=== PATIENT | male | born 1965 | race Caucasian/White ===

== ENCOUNTER 2019-02-11 17:09 | Inpatient (IN) ==
[2019-02-11] MEDS ORDERED: methylPREDNISolone 125 MG/2 ML VIAL IVP ONE (17:12)
[2019-02-11] MEDS ORDERED: 0.9 % Sodium Chloride 1,000 ML IVC ONE ×2 (17:12→17:18)
[2019-02-11] MEDS ORDERED: Ipratropium/Albuterol Neb 3 ML IH ONE (17:12)
[2019-02-11] MEDS ORDERED: cefTRIAXone 2,000 MG in Water for inj. (sterile) 10 ML IVP ONE (17:12)
[2019-02-11] MEDS ORDERED: Azithromycin 500 MG in 0.9 % Sodium Chloride 250 ML IVPB ONE (17:12)
[2019-02-11 17:35] LABS: ABG Base Excess 2 mEq/L (-2 to 3); ABG HCO3 31 mEq/L (21-27); ABG Oxygen Saturation 86 % (95-98); ABG PCO2 61 mmHg (35-45); ABG PH 7.32 pH Units (7.32-7.45); ABG PO2 57 mmHg (85-104); ABG TCO2 33 mEq/L (20-26)
[2019-02-11 17:41] LABS: Basophils # 0.1 K/mcL (0.0-0.2); Basophils % 0.6 %; Eosinophils % 0.1 %; Hemoglobin 18.6 g/dL (12.9-16.9); Immature Granulocytes % 0.3 % (0-4); Lymphocytes # 0.4 K/mcL (0.6-4.6); Lymphocytes % 3.3 %; Mean Corpuscular HGB Conc 33.2 g/dL (31.6-35.5); Mean Corpuscular Hemoglobin 31.7 pg (28.0-33.3); Mean Corpuscular Volume 95.4 fL (83.0-100.0); Mean Platelet Volume 9.7 fL (9.4-12.4); Monocytes # 0.5 K/mcL (0.0-1.3); Monocytes % 4.3 %; Neutrophils # 9.7 K/mcL (1.6-8.9); Platelet Count 142 K/mcL (140-400); Red Blood Count 5.87 M/mcL (4.19-5.50); Segmented Neutrophils % 91.4 %; White Blood Count 10.6 K/mcL (4.3-11.1)
[2019-02-11 17:50] LABS: INR 1.2; Prothrombin Time 13.5 Seconds (9.4-12.1)
[2019-02-11 17:52] LABS: Activated Partial Thrombo Time 37.2 Seconds (26.0-36.0)
[2019-02-11] MEDS ORDERED: Ondansetron 4 MG/2 ML VIAL IVP ONE (17:54)
[2019-02-11 17:58] LABS: Alanine Aminotransferase 14 Units/L (7-52); Albumin 4.3 g/dL (3.5-5.7); Albumin/Globulin Ratio 1.3 (1.1-2.2); Alkaline Phosphatase 75 Units/L (34-104); Aspartate Amino Transferase 20 Units/L (13-39); BUN/Creatinine Ratio 15 (6-26); Bilirubin,Direct 0.2 mg/dL (0.0-0.2); Bilirubin,Indirect 0.6 mg/dL (0.0-1.0); Bilirubin,Total 0.8 mg/dL (0.3-1.0); Blood Urea Nitrogen 15 mg/dL (6-20); Calcium 9.2 mg/dL (8.6-10.3); Carbon Dioxide 30 mEq/L (23-29); Chloride 100 mEq/L (98-107); Globulin 3.4 g/dL (2.4-3.5); Glucose 142 mg/dL (70-105); Osmolality,Calculated 289 (280-300); Potassium 4.1 mEq/L (3.5-5.1); Sodium 138 mEq/L (136-145); Total Protein 7.7 g/dL (6.4-8.9); eGFR For African Americans > 60 (> 60); eGFR For Non-African Americans > 60 (> 60)
[2019-02-11 18:01] LABS: Troponin I 0.03 ng/mL (< 0.04)
[2019-02-11] MEDS ORDERED: GuaiFENesin Liq 200 MG/10 ML UDC PO ONE (18:18)
[2019-02-11] MEDS ORDERED: Albuterol 2.5 MG/3 ML NEBULIZER IH ONE (18:18)
[2019-02-11] MEDS ORDERED: Albuterol 2.5 MG/3 ML NEBULIZER ONE (18:27)
[2019-02-11] MEDS ORDERED: Naloxone 0.4 MG/ML INJ IVP PRN (18:52)
[2019-02-11] MEDS ORDERED: Ibuprofen 400 MG TABLET PO PRN (18:52)
[2019-02-11] MEDS ORDERED: MOM Conc 10 ML UD.LIQ PO PRN (18:52)
[2019-02-11] MEDS ORDERED: Ondansetron 4 MG/2 ML VIAL IVP PRN (18:52)
[2019-02-11] MEDS ORDERED: 0.9 % Sodium Chloride 1,000 ML IVC SCH (19:00)
[2019-02-11] MEDS: Ipratropium/Albuterol Neb 3 ML IH SCH (20:22)
[2019-02-11] MEDS: 0.9 % Sodium Chloride 1,000 ML IVC SCH (21:00)
[2019-02-11] MEDS ORDERED: Ibuprofen 800 MG TABLET PO PRN (23:13)
[2019-02-12] MEDS: Ipratropium/Albuterol Neb 3 ML IH SCH ×6 (00:14→21:06)
[2019-02-12] MEDS: MethylPREDNISolone 40 MG/ML VIAL IVP SCH ×4 (00:24→18:02)
[2019-02-12] MEDS ORDERED: Albuterol 2.5 MG/3 ML NEBULIZER IH SCH (04:00)
[2019-02-12] MEDS: 0.9 % Sodium Chloride 1,000 ML IVC SCH ×2 (04:42→21:51)
[2019-02-12 06:57] LABS: Hematocrit 54.3 % (37.5-50.1); Mean Corpuscular HGB Conc 31.3 g/dL (31.6-35.5); Mean Corpuscular Hemoglobin 31.2 pg (28.0-33.3); Mean Corpuscular Volume 99.6 fL (83.0-100.0); Mean Platelet Volume 9.5 fL (9.4-12.4); Platelet Count 120 K/mcL (140-400); Red Blood Count 5.45 M/mcL (4.19-5.50); Red Cell Distribution Width 13.8 % (11.5-14.5); White Blood Count 8.1 K/mcL (4.3-11.1)
[2019-02-12 07:18] LABS: BUN/Creatinine Ratio 19 (6-26); Blood Urea Nitrogen 17 mg/dL (6-20); Calcium 8.5 mg/dL (8.6-10.3); Carbon Dioxide 32 mEq/L (23-29); Chloride 105 mEq/L (98-107); Glucose 195 mg/dL (70-105); Osmolality,Calculated 299 (280-300); Potassium 4.4 mEq/L (3.5-5.1); Sodium 141 mEq/L (136-145); eGFR For African Americans > 60 (> 60); eGFR For Non-African Americans > 60 (> 60)
[2019-02-12] MEDS ORDERED: ARIPiprazole 5 MG TABLET PO SCH (09:00)
[2019-02-12] MEDS ORDERED: Sucralfate 1 GM TABLET PO SCH (09:00)
[2019-02-12] MEDS ORDERED: amLODIPine 5 MG TABLET PO SCH (09:00)
[2019-02-12] MEDS ORDERED: RisperiDAL 3 MG TABLET PO SCH (09:00)
[2019-02-12] MEDS: risperiDONE 1 MG TABLET PO SCH ×2 (09:10→21:49)
[2019-02-12] MEDS: ALPRAZolam 1 MG TABLET PO SCH ×3 (09:10→21:50)
[2019-02-12] MEDS ORDERED: Piperacillin/Tazobactam 3.375 GM in 0.9 % Sodium Chloride Mini Bag 100 ML IVPB SCH (10:31)
[2019-02-12] MEDS ORDERED: levoFLOXacin 750 MG/150 ML 750 MG/150 ML BAG IVPB SCH (10:32)
[2019-02-12] MEDS ORDERED: *HR* Enoxaparin 40 MG/0.4 ML SYRINGE SQ SCH (12:01)
[2019-02-12 13:03] LABS: Acinetobacter baumannii by PCR Not Detected (Not Detect); Candida albicans by PCR Not Detected (Not Detect); Enterobacter cloacae Cmplx PCR Not Detected (Not Detect); Enterobacteriaceae by PCR Not Detected (Not Detect); Enterococcus by PCR Not Detected (Not Detect); Escherichia coli by PCR Not Detected (Not Detect); Klebsiella oxytoca by PCR Not Detected (Not Detect); Klebsiella pneumoniae by PCR Not Detected (Not Detect); Proteus by PCR Not Detected (Not Detect); Pseudomonas aeruginosa by PCR Not Detected (Not Detect); Serratia marcescens by PCR Not Detected (Not Detect); Staphylococcus aureus by PCR Not Detected (Not Detect); Staphylococcus by PCR DETECTED (Not Detect); Streptococcus agalactiae(B)PCR Not Detected (Not Detect); Streptococcus by PCR Not Detected (Not Detect); Streptococcus pneumoniae PCR Not Detected (Not Detect); Streptococcus pyogenes (A) PCR Not Detected (Not Detect); blaKPC Carbapenem-Resist Gene Not Detected (Not Detect); mecA Methicillin-Resist Gene DETECTED (Not Detect); vanA/B Vancomycin-Resist Genes Not Detected (Not Detect)
[2019-02-12 13:04] LABS: Candida glabrata by PCR Not Detected (Not Detect); Candida krusei by PCR Not Detected (Not Detect); Candida parapsilosis by PCR Not Detected (Not Detect); Candida tropicalis by PCR Not Detected (Not Detect)
[2019-02-12] MEDS ORDERED: cefTRIAXone 2,000 MG in Water for inj. (sterile) 20 ML IVPB SCH (16:00)
[2019-02-12] MEDS ORDERED: Azithromycin 500 MG in 0.9 % Sodium Chloride 250 ML IVPB SCH (17:00)
[2019-02-12 17:15] LABS: Adenovirus Not Detected (Not Detect); Bordetella Pertussis Not Detected (Not Detect); Chlamydophila pneumoniae Not Detected (Not Detect); Coronavirus 229E Not Detected (Not Detect); Coronavirus HKU1 Not Detected (Not Detect); Coronavirus NL63 Not Detected (Not Detect); Coronavirus OC43 Not Detected (Not Detect); Human Metapneumovirus Not Detected (Not Detect); Human Rhinovirus/Enterovirus Not Detected (Not Detect); Influenza A Subtype 2009 H1 Not Detected (Not Detect); Influenza A Untypeable Not Detected (Not Detect); Influenza B Not Detected (Not Detect); Mycoplasma pneumoniae Not Detected (Not Detect); Parainfluenza Virus 1 Not Detected (Not Detect); Parainfluenza Virus 2 Not Detected (Not Detect); Parainfluenza Virus 3 Not Detected (Not Detect); Parainfluenza Virus 4 Not Detected (Not Detect); Respiratory Syncytial Virus DETECTED (Not Detect)
[2019-02-12] MEDS ORDERED: Furosemide 40 MG/4 ML VIAL IVP ONE (17:37)
[2019-02-12 18:19] LABS: ABG Base Excess -3 mEq/L (-2 to 3); ABG HCO3 34 mEq/L (21-27); ABG Oxygen Saturation 89 % (95-98); ABG PCO2 119 mmHg (35-45); ABG PH 7.06 pH Units (7.32-7.45); ABG PO2 86 mmHg (85-104); ABG TCO2 37 mEq/L (20-26)
[2019-02-12 19:29] VITALS: BP 109/59
[2019-02-12] MEDS: Piperacillin/Tazobactam 3.375 GM in 0.9 % Sodium Chloride Mini Bag 100 ML IVPB SCH ×2 (21:51→21:52)
[2019-02-13] MEDS ORDERED: Piperacillin/Tazobactam 3.375 GM in 0.9 % Sodium Chloride Mini Bag 100 ML IVPB SCH
== END 2019-02-12 23:10 | disposition short-term general hospital (02) | DRG 720 ==
LOC: EMEROOPIK 17:09 → INPPIK 17:09
PROVIDERS: ADMIT Nurse Practitioner Primary Care; ATTEND Nurse Practitioner Primary Care

== ENCOUNTER 2019-03-18 17:49 | Observation (INO) ==
[2019-03-18 19:24] LABS: Bilirubin,Urine Negative (Negative); Blood,Urine Negative (Negative); Clarity,Urine Clear (Clear); Color,Urine Yellow (Yellow); Glucose,Urine (UA) Normal (Normal); Ketones,Urine Negative (Negative); Leukocyte Esterase,Urine Negative (Negative); Nitrite,Urine Negative (Negative); Protein,Urine Negative (Neg-Trace); Specific Gravity,Urine 1.025 (1.010-1.025); Urobilinogen,Urine >=8.0 mg/dL (Normal)
[2019-03-18 19:49] LABS: Basophils # 0.1 K/mcL (0.0-0.2); Basophils % 0.4 %; Eosinophils % 0.1 %; Hematocrit 50.2 % (37.5-50.1); Immature Granulocytes % 0.4 % (0-4); Lymphocytes # 1.7 K/mcL (0.6-4.6); Lymphocytes % 10.4 %; Mean Corpuscular HGB Conc 33.9 g/dL (31.6-35.5); Mean Corpuscular Hemoglobin 30.9 pg (28.0-33.3); Mean Corpuscular Volume 91.3 fL (83.0-100.0); Mean Platelet Volume 9.2 fL (9.4-12.4); Monocytes # 1.5 K/mcL (0.0-1.3); Platelet Count 162 K/mcL (140-400); Red Cell Distribution Width 13.6 % (11.5-14.5); Segmented Neutrophils % 79.7 %; White Blood Count 16.5 K/mcL (4.3-11.1)
[2019-03-18 19:53] LABS: Neutrophils # 13.2 K/mcL (1.6-8.9)
[2019-03-18 19:59] LABS: Prothrombin Time 11.6 Seconds (9.4-12.1)
[2019-03-18 20:10] LABS: Alanine Aminotransferase 19 Units/L (7-52); Albumin 4.2 g/dL (3.5-5.7); Albumin/Globulin Ratio 1.4 (1.1-2.2); Alkaline Phosphatase 73 Units/L (34-104); Aspartate Amino Transferase 19 Units/L (13-39); BUN/Creatinine Ratio 13 (6-26); Bilirubin,Total 0.6 mg/dL (0.3-1.0); Blood Urea Nitrogen 13 mg/dL (6-20); Calcium 9.1 mg/dL (8.6-10.3); Carbon Dioxide 28 mEq/L (23-29); Chloride 102 mEq/L (98-107); Globulin 3.1 g/dL (2.4-3.5); Glucose 104 mg/dL (70-105); Magnesium 1.8 mg/dL (1.6-2.6); Osmolality,Calculated 286 (280-300); Potassium 4.1 mEq/L (3.5-5.1); Sodium 138 mEq/L (136-145); Total Protein 7.3 g/dL (6.4-8.9); eGFR For African Americans > 60 (> 60); eGFR For Non-African Americans > 60 (> 60)
[2019-03-18 20:11] LABS: Troponin I < 0.03 ng/mL (< 0.04)
[2019-03-18] MEDS ORDERED: Isovue-370 500 ML BOTTLE IVP ONE (20:30)
[2019-03-18] MEDS ORDERED: 0.9 % Sodium Chloride 1,000 ML IV ONE (22:18)
[2019-03-18] MEDS ORDERED: Piperacillin/Tazobactam 3.375 GM in 0.9 % Sodium Chloride Mini Bag 100 ML IVPB SCH (22:30)
[2019-03-18] MEDS ORDERED: Ipratropium/Albuterol Neb 3 ML IH PRN ×2 (22:47→23:21)
[2019-03-18] MEDS ORDERED: Ondansetron 4 MG/2 ML VIAL IVP PRN (23:21)
[2019-03-18] MEDS ORDERED: Naloxone 0.4 MG/ML INJ IVP PRN (23:21)
[2019-03-18] MEDS: 0.9 % Sodium Chloride 1,000 ML IVC SCH (23:41)
[2019-03-19] MEDS: risperiDONE 1 MG TABLET PO SCH ×2 (00:14→20:20)
[2019-03-19] MEDS: ALPRAZolam 1 MG TABLET PO SCH ×4 (00:14→20:21)
[2019-03-19] MEDS: Ipratropium/Albuterol Neb 3 ML IH SCH ×4 (03:40→22:19)
[2019-03-19 06:30] LABS: BUN/Creatinine Ratio 14 (6-26); Blood Urea Nitrogen 13 mg/dL (6-20); Calcium 8.1 mg/dL (8.6-10.3); Carbon Dioxide 23 mEq/L (23-29); Chloride 105 mEq/L (98-107); Glucose 114 mg/dL (70-105); Osmolality,Calculated 285 (280-300); Potassium 3.6 mEq/L (3.5-5.1); Sodium 137 mEq/L (136-145); eGFR For African Americans > 60 (> 60); eGFR For Non-African Americans > 60 (> 60)
[2019-03-19 07:14] LABS: Basophils # 0.1 K/mcL (0.0-0.2); Basophils % 0.5 %; Eosinophils # 0.1 K/mcL (0.0-0.6); Eosinophils % 0.4 %; Hematocrit 43.2 % (37.5-50.1); Hemoglobin 14.7 g/dL (12.9-16.9); Immature Granulocytes % 0.4 % (0-4); Lymphocytes # 2.4 K/mcL (0.6-4.6); Lymphocytes % 19.5 %; Mean Corpuscular Hemoglobin 31.3 pg (28.0-33.3); Mean Corpuscular Volume 91.9 fL (83.0-100.0); Mean Platelet Volume 9.5 fL (9.4-12.4); Monocytes # 1.3 K/mcL (0.0-1.3); Monocytes % 10.4 %; Neutrophils # 8.4 K/mcL (1.6-8.9); Platelet Count 138 K/mcL (140-400); Red Cell Distribution Width 13.7 % (11.5-14.5); Segmented Neutrophils % 68.8 %; White Blood Count 12.2 K/mcL (4.3-11.1)
[2019-03-19] MEDS ORDERED: Bumetanide 1 MG TABLET PO SCH (08:00)
[2019-03-19] MEDS: Loratadine 10 MG TABLET PO SCH (08:33)
[2019-03-19] MEDS: amLODIPine 5 MG TABLET PO SCH (08:33)
[2019-03-19] MEDS: ARIPiprazole 5 MG TABLET PO SCH (08:33)
[2019-03-19] MEDS: Piperacillin/Tazobactam 3.375 GM in 0.9 % Sodium Chloride Mini Bag 100 ML IVPB SCH ×2 (08:34→16:24)
[2019-03-19] MEDS ORDERED: Furosemide 20 MG TABLET PO SCH (09:00)
[2019-03-19 11:39] LABS: Adenovirus Not Detected (Not Detect); Bordetella Pertussis Not Detected (Not Detect); Chlamydophila pneumoniae Not Detected (Not Detect); Coronavirus 229E Not Detected (Not Detect); Coronavirus HKU1 Not Detected (Not Detect); Coronavirus NL63 Not Detected (Not Detect); Coronavirus OC43 Not Detected (Not Detect); Human Metapneumovirus Not Detected (Not Detect); Human Rhinovirus/Enterovirus Not Detected (Not Detect); Influenza A Subtype 2009 H1 Not Detected (Not Detect); Influenza B Not Detected (Not Detect); Mycoplasma pneumoniae Not Detected (Not Detect); Parainfluenza Virus 1 Not Detected (Not Detect); Parainfluenza Virus 2 Not Detected (Not Detect); Parainfluenza Virus 3 Not Detected (Not Detect); Parainfluenza Virus 4 Not Detected (Not Detect); Respiratory Syncytial Virus Not Detected (Not Detect)
[2019-03-19] MEDS: 0.9 % Sodium Chloride 1,000 ML IVC SCH (13:09)
[2019-03-20] MEDS: Piperacillin/Tazobactam 3.375 GM in 0.9 % Sodium Chloride Mini Bag 100 ML IVPB SCH ×3 (01:26→15:39)
[2019-03-20] MEDS: Ipratropium/Albuterol Neb 3 ML IH SCH ×4 (03:55→22:21)
[2019-03-20 05:23] LABS: Hematocrit 42.3 % (37.5-50.1); Mean Corpuscular HGB Conc 33.1 g/dL (31.6-35.5); Mean Corpuscular Hemoglobin 30.8 pg (28.0-33.3); Mean Platelet Volume 9.4 fL (9.4-12.4); Platelet Count 128 K/mcL (140-400); Red Blood Count 4.55 M/mcL (4.19-5.50); Red Cell Distribution Width 13.7 % (11.5-14.5); White Blood Count 8.4 K/mcL (4.3-11.1)
[2019-03-20 05:42] LABS: BUN/Creatinine Ratio 14 (6-26); Blood Urea Nitrogen 14 mg/dL (6-20); Calcium 8.2 mg/dL (8.6-10.3); Carbon Dioxide 25 mEq/L (23-29); Chloride 107 mEq/L (98-107); Glucose 134 mg/dL (70-105); Osmolality,Calculated 292 (280-300); Potassium 3.7 mEq/L (3.5-5.1); Sodium 140 mEq/L (136-145); eGFR For African Americans > 60 (> 60); eGFR For Non-African Americans > 60 (> 60)
[2019-03-20] MEDS: amLODIPine 5 MG TABLET PO SCH (08:54)
[2019-03-20] MEDS: Loratadine 10 MG TABLET PO SCH (08:54)
[2019-03-20] MEDS: ALPRAZolam 1 MG TABLET PO SCH ×3 (08:54→20:41)
[2019-03-20] MEDS: ARIPiprazole 5 MG TABLET PO SCH (08:54)
[2019-03-20] MEDS: risperiDONE 1 MG TABLET PO SCH (20:41)
[2019-03-20] MEDS ORDERED: 0.9 % Sodium Chloride 1,000 ML IV ONE (23:43)
[2019-03-21] MEDS: Piperacillin/Tazobactam 3.375 GM in 0.9 % Sodium Chloride Mini Bag 100 ML IVPB SCH ×2 (00:05→08:27)
[2019-03-21] MEDS: Ipratropium/Albuterol Neb 3 ML IH SCH ×2 (04:48→09:22)
[2019-03-21] MEDS: ARIPiprazole 5 MG TABLET PO SCH (08:26)
[2019-03-21] MEDS: ALPRAZolam 1 MG TABLET PO SCH (08:27)
[2019-03-21] MEDS: Loratadine 10 MG TABLET PO SCH (08:27)
[2019-03-21] MEDS: amLODIPine 5 MG TABLET PO SCH (08:27)
[2019-03-21 10:18] VITALS: BP 102/59
== END 2019-03-21 13:19 | disposition home or self-care (01) ==
LOC: INPPIK 17:49 → EMEROOPIK 17:49 → SUATTDRO 22:45 → INPPIK 23:14
PROVIDERS: ADMIT Internal Medicine; ATTEND Family Medicine